=== PATIENT | male | born 1990 | race Caucasian/White ===

== ENCOUNTER 2016-11-06 04:52 | Emergency (ER) | payer SELFPAY ==
[~2016-11-06] VITALS: Ht 187.9 cm; Wt 154.2 kg
[~2016-11-06 04:52] MED LIST: 'PARAFON FORTE500 M1 PO; AMOXICILLIN500 MG PO; ANAPROX DS550 MG PO; BACTRIM DS 8001 TA1 PO; DICLOFENAC POTA50 MG PO; EPIPEN 2-PAK1 MG/ML IJ; FLEXERIL10 MG PO; HYDROCODONE BIT1 T11 PO; KEFLEX500 MG PO; MOTRIN800 MG PO; NAPROSYN500 MG PO; PREDNISONE20 M1 PO; TYLENOL325 M1 PO; ULTRAM50 MG PO; ZANTAC 150150 MG PO; ZITHROMAX Z PA250 MG PO; ZOFRAN ODT4 MG SL
[2016-11-06 04:59] VITALS: BP 164/75
[2016-11-06 05:44] LABS: BASO # 0.1 10*3/uL (0.0-0.1); BASO % 0.5 % (0.0-1.0); EOS # 0.3 10*3/uL (0.0-0.4); EOS % 1.8 % (1.0-4.0); HEMATOCRIT 44.1 % (42.0-52.0); IG # 0.1 10*3/uL (0.0-0.1); LYMPH # 2.6 10*3/uL (1.3-4.4); LYMPH % 15.5 % (27.0-41.0); MEAN CELL VOLUME 90.9 fl (80.0-94.0); MEAN CORPUSCULAR HGB 30.9 pg (27.0-31.0); MEAN PLATELET VOLUME 9.6 fl (9.6-12.3); MONO # 1.1 10*3/uL (0.1-1.0); MONO % 6.3 % (3.0-9.0); NEUT # 12.7 10*3/uL (2.3-7.9); NEUT % 75.2 % (47.0-73.0); PLATELET COUNT AUTOMATED 282 10*3/uL (130-400); RED BLOOD COUNT 4.85 10*6/uL (4.50-5.90); RED CELL DISTRI WIDTH 12.4 % (0-14.5); WHITE BLOOD COUNT 16.8 10*3/uL (4.8-10.8)
[2016-11-06 06:00] LABS: ALBUMIN 3.7 gm/dl (3.1-4.5); ALKALINE PHOSPHATASE 73 U/L (45-117); BILIRUBIN, TOTAL 0.3 mg/dl (0.2-1.0); BUN 12 mg/dl (7-24); CARBON DIOXIDE 26 mmol/L (21-32); CHLORIDE 107 mmol/L (98-107); EST GLOM FILT AFRICAN AMERICAN > 60 ml/min; GLUCOSE 111 mg/dL (65-99); POTASSIUM 3.7 mmol/L (3.5-5.1); SGOT/AST 47 IU/L (3-35); SGPT/ALT 134 U/L (12-78); SODIUM 142 mmol/L (136-145); TOTAL PROTEIN 7.1 gm/dL (6.4-8.2)
[2016-11-06 06:13] LABS: BILIRUBIN 1+ (NEGATIVE); BLOOD 3+ (NEGATIVE); CLARITY CLOUDY (CLEAR); COLOR YELLOW (YELLOW); GLUCOSE NEGATIVE (NEGATIVE); KETONE NEGATIVE (NEGATIVE); LEUKO ESTERASE NEGATIVE (NEGATIVE); NITRITE NEGATIVE (NEGATIVE); PROTEIN TRACE (NEGATIVE); UROBILINOGEN 0.2 E.U./dl (0.2-1.0)
[2016-11-06 06:31] LABS: RBC TNTC rbc/hpf (0-2)
[2016-11-06 06:34] LABS: BACTERIA 1+
[2016-11-06 06:35] LABS: CALCIUM OXALATE CRYSTALS TRACE; MUCOUS 1+; RED BLOOD CELL CAST 0-1
[2016-11-06] MEDS ORDERED: FLOMAX0.4 MG PO (06:41)
[2016-11-06] MEDS ORDERED: NORCO 5-325 TA1 EACH PO (06:41)
[2016-11-06] MEDS ORDERED: Zofran4 MG PO (06:41)
== END 2016-11-06 06:52 | disposition home or self-care (01) ==
LOC: ED 04:52
PROVIDERS: Emergency Medicine
DX: R10.31 Right lower quadrant pain (principal); R31.9 Hematuria, unspecified; R11.10 Vomiting, unspecified; Z91.030 Bee allergy status

== ENCOUNTER 2017-02-19 20:03 | Emergency (ER) | payer SELFPAY ==
[~2017-02-19] VITALS: Ht 185.4 cm; Wt 136.1 kg
[~2017-02-19 20:03] MED LIST changes: +FLOMAX0.4 MG PO; +NORCO 5-325 TA1 EACH PO; +Zofran4 MG PO
[2017-02-19 20:25] VITALS: BP 148/84
[2017-02-19] MEDS ORDERED: BENADRYL25 M2 PO (20:41)
== END 2017-02-19 21:54 | disposition home or self-care (01) ==
LOC: ED 20:03
DX: S00.86XA Insect bite (nonvenomous) of other part of head, initial encounter (principal); F17.200 Nicotine dependence, unspecified, uncomplicated; Z91.030 Bee allergy status; W57.XXXA Bitten or stung by nonvenomous insect and other nonvenomous arthropods, initial encounter; Y93.9 Activity, unspecified; Y92.9 Unspecified place or not applicable; Y99.9 Unspecified external cause status

== ENCOUNTER 2017-02-21 00:50 | Emergency (ER) | payer SELFPAY ==
[~2017-02-21] VITALS: Ht 185.4 cm; Wt 136.1 kg
[~2017-02-21 00:50] MED LIST changes: +BENADRYL25 M2 PO
[2017-02-21 00:57] VITALS: BP 140/70
[2017-02-21] MEDS ORDERED: SEPTDS PO (01:11)
[2017-02-21] MEDS ORDERED: CEPHALEXIN500 M1 PO (19:31)
== END 2017-02-21 01:45 | disposition home or self-care (01) ==
LOC: ED 00:50
DX: S30.861A Insect bite (nonvenomous) of abdominal wall, initial encounter (principal); L03.211 Cellulitis of face; F17.200 Nicotine dependence, unspecified, uncomplicated; Z79.899 Other long term (current) drug therapy; Z91.030 Bee allergy status; W57.XXXA Bitten or stung by nonvenomous insect and other nonvenomous arthropods, initial encounter; Y93.89 Activity, other specified; Y92.89 Other specified places as the place of occurrence of the external cause; Y99.9 Unspecified external cause status

== ENCOUNTER 2017-02-21 18:28 | Emergency (ER) | payer SELFPAY ==
[~2017-02-21] VITALS: Ht 185.4 cm; Wt 136.1 kg
[~2017-02-21 18:28] MED LIST changes: +SEPTDS PO
[2017-02-21 18:42] VITALS: BP 145/76
[2017-02-21] MEDS ORDERED: CEPHALEXIN500 M1 PO (19:31)
== END 2017-02-22 08:20 | disposition home or self-care (01) ==
LOC: ED 18:28
DX: L03.211 Cellulitis of face (principal); F17.200 Nicotine dependence, unspecified, uncomplicated; Z91.030 Bee allergy status

== ENCOUNTER 2019-08-02 23:39 | Emergency (ER) | payer SELFPAY ==
[~2019-08-02] VITALS: Ht 187.9 cm; Wt 136.1 kg
[~2019-08-02 23:39] MED LIST changes: +CEPHALEXIN500 M1 PO
[2019-08-02 23:46] VITALS: BP 120/70
[2019-08-03] MEDS ORDERED: VISTARIL50 MG PO (00:47)
[2019-08-03] MEDS ORDERED: MEDROL DOSEPAK4 MG PO (00:47)
== END 2019-08-03 01:00 | disposition home or self-care (01) ==
LOC: ED 23:39
DX: L25.9 Unspecified contact dermatitis, unspecified cause (principal); Z91.030 Bee allergy status

== ENCOUNTER 2021-07-31 18:43 | Emergency (ER) | payer SELFPAY ==
[~2021-07-31] VITALS: Ht 185.4 cm; Wt 136.1 kg
[~2021-07-31 18:43] MED LIST changes: +MEDROL DOSEPAK4 MG PO; +VISTARIL50 MG PO
[2021-07-31 19:19] LABS: BASO # 0.1 10*3/uL (0.0-0.1); BASO % 0.5 % (0.0-1.0); EOS # 0.2 10*3/uL (0.0-0.4); EOS % 1.3 % (1.0-4.0); HEMATOCRIT 44.2 % (42.0-52.0); LYMPH # 3.9 10*3/uL (1.3-4.4); LYMPH % 23.1 % (27.0-41.0); MEAN CELL VOLUME 88.2 fl (80.0-94.0); MEAN CORPUSCULAR HGB 30.1 pg (27.0-31.0); MEAN CORPUSCULAR HGB CONC 34.2 g/dl (33.0-37.0); MEAN PLATELET VOLUME 9.3 fl (9.6-12.3); MONO # 1.2 10*3/uL (0.1-1.0); MONO % 6.8 % (3.0-9.0); NEUT # 11.6 10*3/uL (2.3-7.9); NEUT % 67.8 % (47.0-73.0); PLATELET COUNT AUTOMATED 312 10*3/uL (130-400); RED BLOOD COUNT 5.01 10*6/uL (4.50-5.90); RED CELL DISTRI WIDTH 12.2 % (0-14.5); WHITE BLOOD COUNT 17.1 10*3/uL (4.8-10.8)
[2021-07-31 19:35] LABS: ALKALINE PHOSPHATASE 79 U/L (45-117); BUN 11 mg/dl (7-24); CHLORIDE 108 mmol/L (98-107); CREATININE 0.81 mg/dL (0.70-1.30); LIPASE 83 U/L (73-393); POTASSIUM 3.6 mmol/L (3.5-5.1); SGOT/AST 24 IU/L (3-35); SGPT/ALT 67 U/L (12-78); SODIUM 139 mmol/L (136-145); TOTAL PROTEIN 7.4 gm/dL (6.4-8.2)
[2021-07-31 19:39] VITALS: BP 141/79
[2021-07-31] MEDS ORDERED: PEPCID20 MG PO (22:22)
[2021-07-31] MEDS ORDERED: CARAFATE1 GM PO (22:22)
== END 2021-07-31 22:56 | disposition home or self-care (01) ==
LOC: ED 18:43
PROVIDERS: Nurse Practitioner Family
DX: K21.9 Gastro-esophageal reflux disease without esophagitis (principal); Z91.030 Bee allergy status

== ENCOUNTER 2022-02-21 11:48 | Emergency (ER) | payer SELFPAY ==
[~2022-02-21 11:48] MED LIST changes: +CARAFATE1 GM PO; +PEPCID20 MG PO
== END 2022-02-21 13:26 | disposition left against medical advice (07) ==
LOC: ED 11:48
DX: Z53.21 Procedure and treatment not carried out due to patient leaving prior to being seen by health care provider (principal)

== ENCOUNTER 2025-02-22 16:09 | Emergency (ER) | payer SELFPAY ==
[~2025-02-22] VITALS: Ht 185.4 cm; Wt 95.3 kg
[2025-02-22 16:43] VITALS: BP 134/60
[2025-02-22] MEDS ORDERED: AMOXICILLIN500 M3 PO (18:25)
[2025-02-22] MEDS ORDERED: AMOXICILLIN 500 MG CAP PO ONE (18:25)
== END 2025-02-22 18:34 | disposition home or self-care (01) ==
LOC: ED 16:09
DX: J02.0 Streptococcal pharyngitis (principal); F90.9 Attention-deficit hyperactivity disorder, unspecified type; F17.210 Nicotine dependence, cigarettes, uncomplicated; Z91.030 Bee allergy status